=== PATIENT | male | born 1990 | race African-American/Black ===

== ENCOUNTER → 2019-08-04 | Outpatient (CLI) | payer OTHER | LOC: MHCPAIN 10:34 | DX: M47.817 Spondylosis without myelopathy or radiculopathy, lumbosacral region (principal); M53.3 Sacrococcygeal disorders, not elsewhere classified | CPT/HCPCS: G0463 ==

== ENCOUNTER → 2019-08-18 | Outpatient (CLI) | payer OTHER | LOC: MHCPAIN 13:52 | DX: M54.5 Low back pain (principal) ==

== ENCOUNTER → 2019-09-17 | Outpatient (CLI) | payer OTHER | LOC: MHCPAIN 14:15 | DX: M47.817 Spondylosis without myelopathy or radiculopathy, lumbosacral region (principal); M53.3 Sacrococcygeal disorders, not elsewhere classified | CPT/HCPCS: G0463 ==

== ENCOUNTER → 2019-10-09 | Outpatient (CLI) | payer OTHER | LOC: MHCPAIN 10:02 | DX: M54.5 Low back pain (principal) ==

== ENCOUNTER → 2019-10-15 | Outpatient (CLI) | payer OTHER | LOC: MHCPAIN 13:02 | DX: M47.817 Spondylosis without myelopathy or radiculopathy, lumbosacral region (principal) | CPT/HCPCS: G0463 ==